=== PATIENT | female | born 1990 | race Caucasian/White ===

== ENCOUNTER 2024-09-13 07:55 | Outpatient (CLI) | payer BC, SELFPAY | END 2024-09-13 07:56 | disposition home or self-care (01) | LOC: INJ CL 07:59 | PROVIDERS: PCP Family Medicine; Visit Provider Family Medicine | DX: M54.16 Radiculopathy, lumbar region (principal); M51.26 Other intervertebral disc displacement, lumbar region | CPT/HCPCS: 64483; J1100; Q9966 ==